=== PATIENT | female | born 1985 | race Caucasian/White ===

== ENCOUNTER 2017-08-01 21:05 | Emergency (ER) | payer OTHER ==
[2017-08-01 21:14] VITALS: BP 120/67
--- NOTE | 2017-08-01 21:36 | ERNOTE ---
ENT HPI Date of Service: 08/01/17 Presenting Symptoms: other - sore throat Time Seen by Provider: 08/01/17 21:16 Source: patient Exam Limitations: no limitations - Immun/Allergies/Home Medications Immunizations: IMMUNIZATION HX Immunizations Up to Date Yes History of Influenza Vaccine No Hx Pneumococcal Vaccination No Allergies/Adverse Reactions: Allergies Allergy/AdvReac Type Severity Reaction Status Date / Time No Known Allergies Allergy Verified 08/01/17 21:13 Home Medications: HOME MEDICATIONS Pnv95/Iron Fum/Folic Acid [ Tablet] 1 each PO DAILY 08/01/17 [Last Taken Unknown] - History of Present Illness Narrative: Pt. comes in with c/o sore throat, rhinorrhea, and cough for 2 days. Pt. denies any CP, SOB, fever, nvd, abd pain, aggravating factors, or alleviating factors despite taking day quil for the symptoms. Pt. is 37 weeks . Review of Systems - Review of Systems Constitutional: Present: no symptoms reported. Absent: fever, chills, weakness , fatigue, malaise EYE: Present: no symptoms reported ENT: Present: nose congestion, nasal drainage, sore throat. Absent: ear pain Respiratory: Present: cough. Absent: shortness of breath, orthopnea, wheezing Cardiology: Present: no symptoms reported. Absent: chest pain, palpitations, edema Gastrointestinal/Abdominal: Present: no symptoms reported. Absent: nausea, vomiting, diarrhea, abdominal pain Genitourinary: Present: no symptoms reported Musculoskeletal: Present: no symptoms reported. Absent: back pain, joint pain Skin: Present: no symptoms reported Neurological: Present: no symptoms reported. Absent: headache, dizziness/light- headedness, numbness, tingling All Other Systems: All systems neg except as marked - Patient's Past Medical History Patient History - Medical: No pertinent hx Patient History - Cardiac/Respiratory: No pertinent hx Patient History - Cancer: No Hx of Cancer Patient History - Surgical Procedures: D & C Patient History - Other: None LMP (females 10-50): LMP (Calendar): 10/18/16 - Social History Living Situations: home Psych History: No pertinent hx Smoking Status: Current every day smoker Alcohol Use: none Drug Use: none - Immunizations Immunizations Up to Date: Yes Hx Pneumococcal Vaccination: No History of Influenza Vaccine: No Physical Exam - Physical Exam General Appearance: Present: wd/wn, alert, no apparent distress Head Exam: Present: normal inspection, no evidence of injury Eye Exam: Normal inspection: bilateral, PERRL: bilateral, EOMI: bilateral Ears, Nose, Throat: Present: normal except -, nasal congestion, pharyngeal erythema, tonsillar exudate - clear. Absent: abnormal TM (R), abnormal TM (L), dry mucous membranes Neck: Present: normal inspection, nontender. Absent: lymphadenopathy (R), lymphadenopathy (L) Respiratory: Present: no respiratory distress, normal breath sounds, no accessory muscle use, chest nontender, lungs clear Cardiovascular/Chest: Present: regular rate, rhythm, no murmur, normal peripheral pulses Extremity Exam: Present: normal inspection Neurological Exam: Present: alert, oriented, normal mood/affect, no motor/ sensory deficits Skin Exam: Present: normal color, warm/dry. Absent: pallor, skin rash ED Progress - Date and Time Seen: Date and Time: 08/01/17 21:29 FHT 147 normal for this gestation. - Results and Orders Patient's Lab Results:: I have reviewed the patient's lab results. - Vital Signs Patient's Vital Signs:: I have reviewed the patient's vital signs. Vital Signs: Vital Signs 08/01/17 21:10 Temperature 36.9 C Pulse Rate 84 Respiratory 18 Rate Blood Pressure 120/67 O2 Sat by Pulse 98 Oximetry - Progress/Reassessment Chief Complaint: Sore Throat Departure Clinical Impression: Acute nasopharyngitis - Departure Disposition: Home self-care Condition: Good Instructions: Upper Respiratory Infection, Adult, [id number] Additional Instructions: Please follow up with primary provider in 2-3 days. May use sinus nasal spray and chloreseptic spray and Tylenol but no other OTC cough and cold medicines.
== END 2017-08-01 21:53 | disposition home or self-care (01) ==
LOC: ER 21:05
DX: J00 Acute nasopharyngitis [common cold] (principal); F17.200 Nicotine dependence, unspecified, uncomplicated

== ENCOUNTER 2017-08-09 14:21 | Inpatient (IN) | payer OTHER ==
[2017-08-09] MEDS ORDERED: RINGER'S SOLUTION,LACTATED 1,000 ML IV ONE (14:34)
[2017-08-09] MEDS ORDERED: LIDOCAINE HCL 50 ML VIAL PERI PRN (14:34)
[2017-08-09] MEDS ORDERED: DEXTROSE 5%-LACTATED RINGERS 1,000 ML IV PRN (14:34)
[2017-08-09] MEDS ORDERED: OXYTOCIN/DEXTROSE 5%-WATER 30 UNITS/500 ML BAG IV ONE ×2 (14:34→17:56)
[2017-08-09] MEDS ORDERED: ONDANSETRON HCL/PF 2 MG/ML VIAL IV PRN (14:50)
[2017-08-09] MEDS ORDERED: NALOXONE HCL 1 MG/1 ML SYRG IV PRN (14:50)
[2017-08-09] MEDS ORDERED: BUPIVACAINE HCL/0.9 % NACL/PF 250 ML EP PRN (14:50)
[2017-08-09] MEDS ORDERED: fentaNYL CITRATE/PF 50 MCG/ML AMPUL IT SCH (15:00)
[2017-08-09] MEDS ORDERED: ALBUTEROL SULFATE 2.5 MG/0.5 ML VIAL.NEB IH PRN (15:07)
[2017-08-09] MEDS ORDERED: AZITHROMYCIN 250 MG TABLET PO ONE (15:09)
--- NOTE | 2017-08-09 15:13 | OR ---
Anesthesia Pre Procedure Eval Date of Service: 08/09/17 Pre Procedure Evaluation: Anesthesia Pre Procedure Evaluation Heart Rate: 84 Blood Pressure: 134/88 Temperature: 37.1 Respiratory Rate: 18 SaO2: 97 DATE: 08/09/2017 TIME: 1510 INDICATIONS: Active labor, labor pain PAST MEDICAL HISTORY: Altered Patient in active labor requesting labor analgesia currently at a loose 5 cm dilatation History of GERD: No History of smoking: No History of sleep apnea: No EXAM: Heart regular; lungs clear ASSESSMENT OF MEDICAL STATUS: appropriate candidate for labor analgesia PLANNED PROCEDURE: Combination spinal epidural for labor analgesia Home Medications: HOME MEDICATIONS Pnv95/Iron Fum/Folic Acid [ Tablet] 1 each PO DAILY 08/01/17 [Last Taken 08/06/17] Ferrous Sulfate [Iron] 325 mg PO DAILY 08/09/17 [Last Taken Unknown]
--- NOTE | 2017-08-09 15:32 | OR ---
Anesthesia Procedure Note - Anesthesia Procedure Note Date of Service: 08/09/17 Narrative: 08/09/17 15:30 ANESTHESIA PROCEDURE NOTE Date of Procedure: 08/09/2017 Time of procedure: 1510. Performed by: AUSTIN Gurrola CRNA, MSN Projection Camera Operator: Pat Gleason RN. Preprocedure diagnosis: Active labor, labor pain. Post procedure diagnosis: Same. Procedure:Epidural for labor analgesia L3 4. Indications: Labor pain. Findings: See below. Details of the procedure: The patient was placed on the side of the bed in sitting positionand prepped with DuraPrep then draped in a sterile fashion. Lidocaine 1% was infiltrated to the skin and subcutaneous tissues at the level of the L34 interspace. An 18-gauge Touhy needle was used to approach the epidural space with loss of resistance technique. Once loss of resistance was achieved a 27-gauge spinal needle was passed through the epidural needle and CSF was contacted. After CSF returned, 20 mcg of fentanyl was injected in the spinal needle was removed the epidural catheter was then threaded approximately 4 cm in the epidural needle was removed. The catheter was taped in place and after careful aspiration 3 mL of 1.5% lidocaine with 1-200,000 epinephrine was injected without change in maternal heart rate or sensorium. . EBL: Minimal. Fluids: N/A. Specimen: N/A. Post procedure condition: The patient tolerated the procedure well with good relief. No complications were noted. Thank you for this consultation. Jerrod Becerril CRNA, ARNP, MSN
[2017-08-09 15:35] LABS: Hematocrit 33.5 % (37.0-47.0); Hemoglobin 11.7 gm/dL (12.5-16.0); Mean Cell Volume 92.8 fl (78-100); Mean Corpuscular Hemoglobin 32.4 pg (27-31); Mean Corpuscular Hgb Conc 34.9 g/dl (32-36); Mean Platelet Volume 10.6 fl (6.0-9.5); Neutrophil # 10.7 K/mm3 (1.3-6.0); Neutrophil % 77.4 % (42-75.0); Platelet Count 253 K/mm3 (150-450); Red Blood Count 3.61 M/mm3 (4.2-5.4); Red Cell Distribution Width 12.6 % (11.5-14.0); White Blood Count 13.9 K/mm3 (4.0-10.5)
--- NOTE | 2017-08-09 16:40 | PN ---
Progess Note - Interim Narrative: 08/09/17 16:38 Patient comfortable with epidural Vital signs stable. FHT: 120 baseline, reassuring Contractions q 2-3 min Cervix: /-1, AROM-bloody Impression: Intrauterine at 38-2/7 weeks in labor with possible partial abruption Plan: Anticipate normal spotting is vaginal delivery soon
[2017-08-09] MEDS ORDERED: GLYCERIN/WITCH HAZEL LEAF 40 APPL BOX TP PRN (17:56)
[2017-08-09] MEDS ORDERED: BENZOCAINE/MENTHOL 81 SPRAY CAN TP PRN (17:56)
[2017-08-09] MEDS ORDERED: oxyCODONE HCL/ACETAMINOPHEN 1 TAB TABLET PO PRN ×2 (17:56)
[2017-08-09] MEDS ORDERED: BISACODYL 10 MG SUPP.RECT RC PRN (17:56)
[2017-08-09] MEDS ORDERED: SENNOSIDES 8.6 MG TABLET PO PRN (17:56)
[2017-08-09] MEDS ORDERED: HYDROCORTISONE 30 APPL TUBE TP PRN (17:56)
--- NOTE | 2017-08-09 17:56 | OR ---
Operative Report - Dictated Report Narrative: Spontaneous vaginal delivery of viable male at 1735 on 08/09/2017 with Apgars 8 and 9, weighing 3230 g in MARII position with body cord x 1. Cord clamping delayed approximately 1 minute Placenta delivered complete, intact, with three vessel cord Estimated blood loss: less than 50 ml Lacerations: None
[2017-08-09] MEDS: IBUPROFEN 800 MG TABLET PO PRN (18:14)
[2017-08-09] MEDS: DOCUSATE SODIUM 100 MG CAPSULE PO SCH (22:24)
[2017-08-09] MEDS: ACETAMINOPHEN 325 MG TABLET PO PRN (22:24)
[2017-08-10] MEDS: IBUPROFEN 800 MG TABLET PO PRN ×3 (04:22→20:59)
[2017-08-10] MEDS: ACETAMINOPHEN 325 MG TABLET PO PRN ×3 (04:22→20:59)
[2017-08-10] MEDS: DOCUSATE SODIUM 100 MG CAPSULE PO SCH ×2 (08:20→20:55)
[2017-08-10] MEDS: PRENATAL VITS96/IRON FUM/FOLIC 1 TAB TABLET PO SCH (08:20)
[2017-08-10] MEDS ORDERED: AZITHROMYCIN 250 MG TABLET PO SCH (09:00)
--- NOTE | 2017-08-10 09:12 | PN ---
Subjective - Date and Time Seen Date: 08/10/17 Time: 09:11 Objective - Vitals Vitals: Last Vital Signs Temp 36.7 C 08/10/17 07:50 Pulse 65 08/10/17 07:50 Resp 18 08/10/17 07:50 BP 127/73 08/10/17 07:50 Pulse Ox 98 08/10/17 07:50 Patient denies complaints. Bottle feeding Lochia wnl Abdomen - soft, nontender Uterus - firm, at umbilicus - 1 No calf tenderness Impression: day #1 - s/p spontaneous vaginal delivery. Plan: Continue routine care - Abnormal Lab Findings Abnormal Lab Findings: Abnormal Lab Results 08/09/17 Range/Units 15:30 WBC 13.9 H (4.0-10.5) K/mm3 RBC 3.61 L (4.2-5.4) M/mm3 Hgb 11.7 L (12.5-16.0) gm/dL Hct 33.5 L (37.0-47.0) % MCH 32.4 H (27-31) pg MPV 10.6 H (6.0-9.5) fl Immature Gran % (Auto) 1.20 H (0.001-0.429) % Immature Gran # (Auto) 0.17 H (0.000-0.0310) K/mm3 Neutrophils % 77.4 H (42-75.0) % Lymphocytes % 14.2 L (20-51) % Neutrophils # 10.7 H (1.3-6.0) K/mm3 Cauti Physician Documentation - Urinary Catheter Management Urethral (Guerra) Date of Insertion: 08/09/17 Time of Insertion: 16:10
[2017-08-10] MEDS ORDERED: FERROUS SULFATE 325 MG TABLET PO SCH (17:00)
--- NOTE | 2017-08-11 06:52 | PN ---
Subjective - Date and Time Seen Date: 08/11/17 Time: 06:51 Objective - Vitals Vitals: Last Vital Signs Temp 36.6 C 08/10/17 20:17 Pulse 78 08/10/17 20:17 Resp 16 08/10/17 20:17 BP 126/73 08/10/17 20:17 Pulse Ox 98 08/10/17 20:17 Patient denies complaints. Lochia wnl Abdomen - soft, nontender Uterus - firm, at umbilicus - 2 No calf tenderness Impression: day #2 - s/p spontaneous vaginal delivery. Desires permanent sterilization. Plan: Routine discharge instructions. Risks, benefits, and alternatives to tubal ligation discussed with patient. All questions answered. Will sign consent today and schedule surgery after 30 days from now. Cauti Physician Documentation - Urinary Catheter Management Urethral (Guerra) Date of Insertion: 08/09/17 Time of Insertion: 16:10
[2017-08-11] MEDS: IBUPROFEN 800 MG TABLET PO PRN (08:25)
[2017-08-11] MEDS: DOCUSATE SODIUM 100 MG CAPSULE PO SCH (08:25)
[2017-08-11] MEDS: PRENATAL VITS96/IRON FUM/FOLIC 1 TAB TABLET PO SCH (08:25)
[2017-08-11] MEDS: ACETAMINOPHEN 325 MG TABLET PO PRN (08:26)
[2017-08-11 08:36] VITALS: BP 117/75
== END 2017-08-11 13:00 | disposition home or self-care (01) | DRG 775 ==
LOC: OB 14:21 → MS 08-10 18:13
PROVIDERS: ADMIT Obstetrics & Gynecology; ATTEND Obstetrics & Gynecology
PROC: 10E0XZZ Delivery of Products of Conception, External Approach (ICD-10-PCS; principal; 2017-08-09)
PROC: 10907ZC Drainage of Amniotic Fluid, Therapeutic from Products of Conception, Via Natural or Artificial Opening (ICD-10-PCS; 2017-08-09)
PROC: 4A1HXCZ Monitoring of Products of Conception, Cardiac Rate, External Approach (ICD-10-PCS; 2017-08-09)
PROC: 00HU33Z Insertion of Infusion Device into Spinal Canal, Percutaneous Approach (ICD-10-PCS; 2017-08-09)
DX: O69.81X0 Labor and delivery complicated by cord around neck, without compression, not applicable or unspecified (principal); O99.324 Drug use complicating childbirth; J06.9 Acute upper respiratory infection, unspecified; O99.02 Anemia complicating childbirth; D64.9 Anemia, unspecified; O99.334 Smoking (tobacco) complicating childbirth; F12.90 Cannabis use, unspecified, uncomplicated; Z3A.38 38 weeks gestation of pregnancy; Z37.0 Single live birth